=== PATIENT | male | born 1955 | race Caucasian/White ===

== ENCOUNTER 2022-03-02 11:09 | Outpatient (CLI) | payer MEDICARE, BC, SELFPAY ==
[2022-03-02 19:38] LABS: Hemoglobin A1C 6.2 % (<5.7)
[2022-03-02 20:03] LABS: Anion Gap 12 mmol/L (8-16); Blood Urea Nitrogen 17 mg/dL (9-20); Calcium 9.2 mg/dL (8.4-10.2); Carbon Dioxide 26 mmol/L (22-30); Chloride 100 mmol/L (98-107); Estimated Glomerular Filt Rate > 60; Glucose 104 mg/dL (65-110); Potassium 3.9 mmol/L (3.4-5.0); Sodium 138 mmol/L (137-145)
== END 2022-03-02 11:10 | disposition home or self-care (01) ==
PROVIDERS: PCP Family Medicine; Visit Provider Family Medicine
DX: R73.03 Prediabetes (principal); I10 Essential (primary) hypertension; I25.10 Atherosclerotic heart disease of native coronary artery without angina pectoris
CPT/HCPCS: 36415; 80048; 83036

== ENCOUNTER 2022-06-03 15:13 | Outpatient (CLI) | payer MEDICARE, BC, SELFPAY ==
[2022-06-03 22:09] LABS: Hemoglobin A1C 6.1 % (<5.7)
== END 2022-06-03 15:14 | disposition home or self-care (01) ==
LOC: ANHBWCLAB 15:14
PROVIDERS: PCP Family Medicine; Visit Provider Family Medicine
DX: R73.09 Other abnormal glucose (principal)
CPT/HCPCS: 36415; 83036

== ENCOUNTER 2022-08-02 00:49 | Day surgery (SDC) | payer MEDICARE, BC, SELFPAY ==
[2022-07-22 12:10] VITALS: BMI 34.3
[2022-08-02 09:24] VITALS: BP 120/85; PULSE 94; RESP 22; TEMP 36.2; O2SAT 99
[2022-08-02] MEDS: LACTATED RINGERS 1,000 ML 150 ML IV CONT (09:35)
[2022-08-02 09:40] LABS: Glucose Point of Care 117 mg/dl (65-105)
--- NOTE | 2022-08-02 10:02 | WPDANESEPPF ---
Anes - Initial Pre Proc Eval Procedure: Operation Date: 08/02/22 10:30 Proposed Procedures p Screening Colonoscopy - Luis Antonio Parmar MD Date/Time: 08/02/22 10:02 Surgeon: Luis Antonio Parmar MD Pre Op Diagnosis: neoplasm screening Patient Data Age: 66 Gender: M Height: 1.85 m Weight: 118.6 kg Last Vital Signs Temp 97.2 F L 08/02/22 09:24 Pulse 94 08/02/22 09:24 Resp 22 H 08/02/22 09:24 BP 120/85 08/02/22 09:24 Pulse Ox 99 08/02/22 09:24 O2 Del Method Room Air 08/02/22 09:24 Allergies Allergy/AdvReac Type Severity Reaction Status Date / Time No Known Allergies Allergy Verified 08/02/22 09:21 Home Medications Medication Instructions Recorded Confirmed Type aspirin 81 mg tablet,delayed 81 mg PO DAILY 08/07/20 07/22/22 History release (Adult Low Dose Aspirin) pravastatin 10 mg tablet See Rx Instructions .Route 05/21/22 07/22/22 Rx .COMPLEX #90 tabs Ozempic 0.25 mg or 0.5 mg (2 0.25 mg (0.2 mL) subcut WEEKLY #3 06/28/22 08/02/22 Rx mg/1.5 mL) subcutaneous pen mL injector (semaglutide) metformin 500 mg tablet 500 mg PO DAILY #90 tabs 06/28/22 07/22/22 Rx valsartan 160 160 tablet PO DAILY 07/22/22 07/22/22 History mg-hydrochlorothiazide 12.5 mg tablet Laboratory Tests 08/02/22 09:34 POC Capillary Glucose 117 mg/dl H mg/dl (65-105) Patient hx anesthesia problems: none Family hx anesthesia problems: none Results Review: All pre-operative results and documents have been reviewed as part of the pre-operative evaluation. [facility] Past Medical History Medical History Adenomatous colon polyp Anxiety BMI 36.0-36.9,adult BMI over 35 Elevated lipids Erectile dysfunction History of appendicitis Hypertension Knee osteoarthritis Panic attack Tinea cruris Surgical History Surgical History History of parotid gland removal History of tonsillectomy and adenoidectomy Family History Family History Father Eye cancer Hypertension Mother Renal disease Other Acute myocardial infarction Social History Social History (Updated 06/03/22 @ 14:42 by Kamryn Lombardi MA) Smoking packs per day: 1 Smoking cigarettes per day: 20.0 Years smoked: 20 Smoking pack-years: 20.00 Smoking status: Former smoker Tobacco type: cigarettes Alcohol intake: current Alcohol use details: occasional Substance use type: former substance user Lack of Transportation: No Lack of Food: Never True Current Housing: I Have Housing Concerned About Future Housing: No Difficulty Paying Gas/Electric Bills: No Difficulty Paying for Meds: No Currently Unemployed: No Education: High School Diploma/GED Difficulty w/ Childcare or Family Care: No Living arrangements: with family Spiritual care concerns: No Anes - Eval Final PreProcedure Day of Procedure 08/02/22 10:02 Patient weight: obese Heart: regular rate and rhythm Lungs: clear to auscultation Airway: Mallampati scale class II Neurological: alert and oriented Last oral intake: >/= 8 hours ASA classification: III Emergent: no Anesthetic plan: proceed Anesthesia type and monitoring: general GIVS and standard monitoring Results Review: All pre-operative results and documents have been reviewed as part of the pre-operative evaluation. Informed Consent: The patient's anesthetic plan and its attendant risks and benefits were discussed with the patient/family/POA. Questions were solicited and answers provided to the satisfaction of the patient/family/POA.
--- NOTE | 2022-08-02 10:08 | WPDANESEPPF ---
Anes - Initial Pre Proc Eval Procedure: Operation Date: 08/02/22 10:30 Proposed Procedures p Screening Colonoscopy - Luis Antonio Parmar MD Date/Time: 08/02/22 10:08 Surgeon: Luis Antonio Parmar MD Pre Op Diagnosis: neoplasm screening Patient Data Age: 66 Gender: M Height: 1.85 m Weight: 118.6 kg Last Vital Signs Temp 97.2 F L 08/02/22 09:24 Pulse 94 08/02/22 09:24 Resp 22 H 08/02/22 09:24 BP 120/85 08/02/22 09:24 Pulse Ox 99 08/02/22 09:24 O2 Del Method Room Air 08/02/22 09:24 Allergies Allergy/AdvReac Type Severity Reaction Status Date / Time No Known Allergies Allergy Verified 08/02/22 09:21 Home Medications Medication Instructions Recorded Confirmed Type aspirin 81 mg tablet,delayed 81 mg PO DAILY 08/07/20 07/22/22 History release (Adult Low Dose Aspirin) pravastatin 10 mg tablet See Rx Instructions .Route 05/21/22 07/22/22 Rx .COMPLEX #90 tabs Ozempic 0.25 mg or 0.5 mg (2 0.25 mg (0.2 mL) subcut WEEKLY #3 06/28/22 08/02/22 Rx mg/1.5 mL) subcutaneous pen mL injector (semaglutide) metformin 500 mg tablet 500 mg PO DAILY #90 tabs 06/28/22 07/22/22 Rx valsartan 160 160 tablet PO DAILY 07/22/22 07/22/22 History mg-hydrochlorothiazide 12.5 mg tablet Laboratory Tests 08/02/22 09:34 POC Capillary Glucose 117 mg/dl H mg/dl (65-105) Patient hx anesthesia problems: none Family hx anesthesia problems: none Results Review: All pre-operative results and documents have been reviewed as part of the pre-operative evaluation. [facility] Past Medical History Medical History Adenomatous colon polyp Anxiety BMI 36.0-36.9,adult BMI over 35 Elevated lipids Erectile dysfunction History of appendicitis Hypertension Knee osteoarthritis Panic attack Tinea cruris Surgical History Surgical History History of parotid gland removal History of tonsillectomy and adenoidectomy Family History Family History Father Eye cancer Hypertension Mother Renal disease Other Acute myocardial infarction Social History Social History (Updated 06/03/22 @ 14:42 by Kamryn Lombardi MA) Smoking packs per day: 1 Smoking cigarettes per day: 20.0 Years smoked: 20 Smoking pack-years: 20.00 Smoking status: Former smoker Tobacco type: cigarettes Alcohol intake: current Alcohol use details: occasional Substance use type: former substance user Lack of Transportation: No Lack of Food: Never True Current Housing: I Have Housing Concerned About Future Housing: No Difficulty Paying Gas/Electric Bills: No Difficulty Paying for Meds: No Currently Unemployed: No Education: High School Diploma/GED Difficulty w/ Childcare or Family Care: No Living arrangements: with family Spiritual care concerns: No Anes - Eval Final PreProcedure Day of Procedure 08/02/22 10:08 Patient weight: obese Heart: regular rate and rhythm Lungs: clear to auscultation Airway: Mallampati scale class II Neurological: alert and oriented Last oral intake: >/= 8 hours ASA classification: III Emergent: no Anesthetic plan: proceed Anesthesia type and monitoring: general GIVS and standard monitoring Results Review: All pre-operative results and documents have been reviewed as part of the pre-operative evaluation. Informed Consent: The patient's anesthetic plan and its attendant risks and benefits were discussed with the patient/family/POA. Questions were solicited and answers provided to the satisfaction of the patient/family/POA.
--- NOTE | 2022-08-02 10:17 | PM.HPGS ---
History of Present Illness History of Present Illness Consent: Risks, benefits, and alternatives have been discussed and questions answered. Patient agrees to proceed with procedure. Chief complaint: neoplasm screening Narrative: Luigi Gonzalez is a 66 year old male with colon polyp 4-5 years ago Review of Systems Constitutional: Constitutional: Denies headache(s) and Denies weakness Eyes: Eyes: Denies blurry vision ENT: Reports Normal hearing present, Denies headache(s) and Denies neck pain Cardiovascular: Cardiovascular: Denies chest pain and Denies dyspnea Respiratory: Respiratory: Denies dyspnea Gastrointestinal: Gastrointestinal: Reports no additional gastrointestinal complaints Genitourinary: Genitourinary: Denies dysuria Musculoskeletal: Musculoskeletal: Denies neck pain Integumentary/Breasts: Skin/Breast: Denies dry skin Neurologic: Reports Normal hearing present, Denies headache(s) and Denies weakness Psychiatric: Psychiatric: Denies anxiety Endocrine: Endocrine: Denies change in body appearance Hematologic/Lymphatic: Hematologic/Lymphatic: Denies easy bleeding Allergic/Immunologic: Allergic/Immunologic: Denies urticaria PMFSH Past Medical History Medical History Adenomatous colon polyp Anxiety BMI 36.0-36.9,adult BMI over 35 Elevated lipids Erectile dysfunction History of appendicitis Hypertension Knee osteoarthritis Panic attack Tinea cruris Surgical History Surgical History History of parotid gland removal History of tonsillectomy and adenoidectomy Family History Family History Father Eye cancer Hypertension Mother Renal disease Other Acute myocardial infarction Social History Social History (Updated 06/03/22 @ 14:42 by Kamryn Lombardi MA) Smoking packs per day: 1 Smoking cigarettes per day: 20.0 Years smoked: 20 Smoking pack-years: 20.00 Smoking status: Former smoker Tobacco type: cigarettes Alcohol intake: current Alcohol use details: occasional Substance use type: former substance user Lack of Transportation: No Lack of Food: Never True Current Housing: I Have Housing Concerned About Future Housing: No Difficulty Paying Gas/Electric Bills: No Difficulty Paying for Meds: No Currently Unemployed: No Education: High School Diploma/GED Difficulty w/ Childcare or Family Care: No Living arrangements: with family Spiritual care concerns: No Meds Home Medications and Allergies Home Medications Medication Instructions Recorded Confirmed Type aspirin 81 mg tablet,delayed 81 mg PO DAILY 08/07/20 07/22/22 History release (Adult Low Dose Aspirin) pravastatin 10 mg tablet See Rx Instructions .Route 05/21/22 07/22/22 Rx .COMPLEX #90 tabs Ozempic 0.25 mg or 0.5 mg (2 0.25 mg (0.2 mL) subcut WEEKLY #3 06/28/22 08/02/22 Rx mg/1.5 mL) subcutaneous pen mL injector (semaglutide) metformin 500 mg tablet 500 mg PO DAILY #90 tabs 06/28/22 07/22/22 Rx valsartan 160 160 tablet PO DAILY 07/22/22 07/22/22 History mg-hydrochlorothiazide 12.5 mg tablet Allergies Allergy/AdvReac Type Severity Reaction Status Date / Time No Known Allergies Allergy Verified 08/02/22 09:21 Vital Signs Vital Signs - 24 hr 08/02/22 09:24 Temperature 97.2 F L Pulse Rate 94 Respiratory Rate 22 H Blood Pressure 120/85 Pulse Oximetry 99 Oxygen Delivery Room Air Exam Const: General: comfortable and no acute distress HENMT: Face/Nose/Sinus: Normal nares present Eyes: General: appearance normal, both eyes and all related structures Neck: Neck: no JVD Resp: Auscultation: clear to auscultation bilaterally Cardio: Rate: regular rate Rhythm: regular rhythm GI: Inspection: non-distended GI Palp: Yes Soft to palpation Skin: General s
[2022-08-02 11:00] VITALS: BP 105/71; PULSE 80; RESP 17; O2SAT 97
[2022-08-02 11:10] VITALS: BP 98/63; PULSE 92; RESP 17; O2SAT 97
[2022-08-02 11:20] VITALS: BP 116/79; PULSE 78; RESP 14; O2SAT 97
== END 2022-08-02 11:28 | disposition home or self-care (01) ==
PROVIDERS: PCP Family Medicine; Visit Provider Internal Medicine Gastroenterology
PROC: 0DJD8ZZ Inspection of Lower Intestinal Tract, Via Natural or Artificial Opening Endoscopic (ICD-10-PCS; CPT 45378; principal; 2022-08-02 10:30)
DX: Z12.11 Encounter for screening for malignant neoplasm of colon (principal); D12.2 Benign neoplasm of ascending colon; D12.0 Benign neoplasm of cecum; D12.3 Benign neoplasm of transverse colon; D12.4 Benign neoplasm of descending colon; K57.30 Diverticulosis of large intestine without perforation or abscess without bleeding; K64.8 Other hemorrhoids; I10 Essential (primary) hypertension; Z79.82 Long term (current) use of aspirin; Z79.899 Other long term (current) drug therapy; Z79.84 Long term (current) use of oral hypoglycemic drugs; Z87.891 Personal history of nicotine dependence; E66.9 Obesity, unspecified; Z68.34 Body mass index [BMI] 34.0-34.9, adult
CPT/HCPCS: 45385; 82948; 88305; J1885; J2405; J2704; J7120

== ENCOUNTER 2023-06-13 11:10 | Outpatient (CLI) | payer MEDICARE, BC, SELFPAY ==
[2023-06-13 19:03] LABS: Hematocrit 45.6 % (42.0-52.0); Hemoglobin 14.7 g/dL (14.0-18.0); Mean Corpuscular HGB Conc 32.2 g/dl (32-36); Mean Corpuscular Hemoglobin 30.3 pg (26-34); Mean Platelet Volume 11.1 fl (7.4-10.4); Platelet Count Result 194 k/mm3 (150-375); Red Blood Count 4.85 M/mm3 (4.6-6.20); White Blood Count 6.3 K/mm3 (4.5-10.0)
[2023-06-13 21:01] LABS: Alanine Aminotransferase 14 U/L (6-50); Albumin Level 4.3 g/dL (3.5-5.1); Alkaline Phosphatase 61 U/L (38-126); Anion Gap 4 mmol/L (8-16); Aspartate Amino Transferase 47 U/L (17-59); Bilirubin,Total 0.9 mg/dL (0.2-1.3); Blood Urea Nitrogen 16 mg/dL (9-20); Calcium 9.5 mg/dL (8.4-10.2); Carbon Dioxide 29 mmol/L (22-30); Chloride 104 mmol/L (98-107); Cholesterol 172 mg/dL (0-200); Estimated Glomerular Filt Rate > 60; Glucose 117 mg/dL (65-110); HDL Direct 36 mg/dL; Potassium 3.9 mmol/L (3.4-5.0); Sodium 137 mmol/L (137-145); Triglycerides 162 mg/dL (<150)
[2023-06-13 21:12] LABS: LDL Cholesterol Direct 97 mg/dL
[2023-06-13 21:44] LABS: Hemoglobin A1C 6.3 % (<5.7)
== END 2023-06-13 11:11 | disposition home or self-care (01) ==
PROVIDERS: PCP Family Medicine; Visit Provider Family Medicine
DX: E11.9 Type 2 diabetes mellitus without complications (principal); E66.9 Obesity, unspecified; E78.5 Hyperlipidemia, unspecified; F41.0 Panic disorder [episodic paroxysmal anxiety]; F41.9 Anxiety disorder, unspecified; I10 Essential (primary) hypertension; I25.10 Atherosclerotic heart disease of native coronary artery without angina pectoris
CPT/HCPCS: 36415; 80053; 80061; 83036; 85027

== ENCOUNTER 2023-06-28 09:50 | Outpatient (CLI) | payer MEDICARE, BC, SELFPAY | END 2023-06-28 09:51 | disposition home or self-care (01) | PROVIDERS: PCP Family Medicine; Visit Provider Family Medicine | DX: H90.3 Sensorineural hearing loss, bilateral (principal) | CPT/HCPCS: 92557; 92567 ==